=== PATIENT | female | born 1995 | race Caucasian/White ===

== ENCOUNTER → 2018-06-22 22:24 | Observation (INO) ==
[2018-06-22 21:41] LABS: Bilirubin,Urine Negative (Negative); Blood,Urine Negative (Negative); Clarity,Urine Cloudy (Clear); Color,Urine Yellow (Yellow); Glucose,Urine (UA) Normal (Normal); Ketones,Urine Negative (Negative); Leukocyte Esterase,Urine Small (Negative); Nitrite,Urine Negative (Negative); Protein,Urine Trace mg/dL (Neg-Trace); Specific Gravity,Urine 1.016 (1.010-1.025); Urobilinogen,Urine Normal (Normal)
[2018-06-22 21:43] LABS: Bacteria,Urine Moderate per hpf (None-Few); Hyaline Casts,Urine None Seen per lpf (None-Few); RBC,Urine 0-3 per hpf (0-3); Squamous Epithelial Cell,Urine Many per lpf (None-Few)
[2018-06-22 21:51] LABS: Amphetamine Screen,Urine Negative ng/mL (Cutoff=1000); Barbiturate Screen,Urine Negative ng/mL (Cutoff=200); Benzodiazepines Screen,Urine Negative ng/mL (Cutoff=200); Cannabinoid Screen,Urine Negative ng/mL (Cutoff = 50); Cocaine Screen,Urine Negative ng/mL (Cutoff= 300); Opiate Screen,Urine Negative ng/mL (Cutoff=300); Phencyclidine Screen,Urine Negative ng/mL (Cutoff=25)
--- NOTE | 2018-06-22 22:18 | Discharge Summary ---
Date of Encounter: 06/22/18 Time of Encounter: 22:16 - Discharge Diagnosis (1) 37 weeks gestation of Priority: Primary Status: Acute Comments: Admit observation for labor evaluation Regular Contractions noted but cervix without change in greater than an hour. SVE fingertip/thick/high (2) NST (non-stress test) reactive Priority: Secondary Status: Acute Comments: FHR 150 bpm, moderate variability, +15 x 15 accelerations, no decelerations. Contractions noted every 2-3 minutes. - Discharge Medications Prescriptions: No Action Ondansetron ODT [Zofran ODT] 4 mg SL Q6HR metroNIDAZOLE [Flagyl] 500 mg PO BID #14 tablet Home Medications: Ondansetron ODT [Zofran ODT] 4 mg SL Q6HR 04/04/18 [History] metroNIDAZOLE [Flagyl] 500 mg PO BID #14 tablet 04/04/18 [Rx] Allergies/Adverse Reactions: Allergy/AdvReac Type Severity Reaction Status Date / Time No Known Allergies Allergy Verified 12/11/17 21:45 Data Procedures and tests throughout hospitalization: Laboratory Tests 06/22/18 06/22/18 21:10 21:10 Urine Color Yellow Urine Clarity Cloudy A Urine pH 7.0 Ur Specific [place] 1.016 Urine Protein Trace Urine Glucose (UA) Normal Urine Ketones Negative Urine Blood Negative Urine Nitrite Negative Urine Bilirubin Negative Urine Urobilinogen Normal Ur Leukocyte Esterase Small H Urine Microscopic RBC 0-3 Urine Microscopic WBC 5-15 H Ur Squamous Epith Cells Many H Urine Bacteria Moderate H Hyaline Casts None Seen Ur Culture Indicated? NO. A Urine Opiates Screen Negative Ur Barbiturates Screen Negative Ur Phencyclidine Scrn Negative Ur Amphetamines Screen Negative U Benzodiazepines Scrn Negative Urine Cocaine Screen Negative U Marijuana (THC) Screen Negative Ur Drug Screen Interp See Below Labs on day of discharge: Labs from last 24 hours 06/22/18 06/22/18 21:10 21:10 Urine Color Yellow Urine Clarity Cloudy A Urine pH 7.0 Ur Specific [place] 1.016 Urine Protein Trace Urine Glucose (UA) Normal Urine Ketones Negative Urine Blood Negative Urine Nitrite Negative Urine Bilirubin Negative Urine Urobilinogen Normal Ur Leukocyte Esterase Small H Urine Microscopic RBC 0-3 Urine Microscopic WBC 5-15 H Ur Squamous Epith Cells Many H Urine Bacteria Moderate H Hyaline Casts None Seen Ur Culture Indicated? NO. A Urine Opiates Screen Negative Ur Barbiturates Screen Negative Ur Phencyclidine Scrn Negative Ur Amphetamines Screen Negative U Benzodiazepines Scrn Negative Urine Cocaine Screen Negative U Marijuana (THC) Screen Negative Ur Drug Screen Interp See Below Date of admission: 06/22/18 21:06 Discharging clinician: Funmilayo Gar Anticipated date of discharge: 06/22/18 - Patient Status Disposition: Home, Self-Care Condition: Good Functional capacity at discharge: independent ambulation Overall status at discharge: patient is progressing back to baseline - Discharge Instructions - Diet and Activity Activity: resume usual activities as tolerated Diet: regular diet Hospital Course [employer] Hospital course: Patient arrived to unit with complaints of contractions since 3:00 this afternoon. She appears visibly uncomfortable with contractions. Reports positive movement, denies vaginal bleeding and fluid leakage. Her cervix was fingertip/thick/high on admission and no change was noted in greater than one hour. Patient was offered Vistaril to help her rest through this early phase of labor and she declined. We discussed nonpharmacological methods of pain relief that she could try at home such as shower repositioning and she was encouraged to come back if pain gets worse. Patient was made aware that until she reaches 39 weeks gestation there are to be no form of augmentation or induction and she understands this. She has multiple family members at bedside for support. She is to follow-up with her OB provider as scheduled for routine care. Time Attestation: Total time spent providing and/or coordinating discharge services: Time Spent: Less than 30 minutes Exam - Constitutional General appearance IM: A&O X 3, pleasant, no acute distress, answers questions appropriately - Respiratory Respiratory exam: Present: CTAB - Cardiovascular Cardiovascular exam IM: Present: RRR, +S1, +S2 - GI/Abdominal GI/Abdominal exam IM: normal bowel sounds, soft - Rectal Rectal exam: deferred - External exam: normal external exam - Extremities Exam Extremities exam IM: Present: full ROM, normal capillary refill, normal inspection - Neurological Exam Neurological exam: alert, normal gait, oriented X3 - VTE Reasons for not Prescribing Prophylaxis: Treatment not Indicated - Low risk for VTE
== END | disposition home or self-care (01) ==
LOC: 1NENULAB
PROVIDERS: ADMIT Registered Nurse; ATTEND Registered Nurse

== ENCOUNTER 2018-06-23 14:38 | Observation (INO) ==
[2018-06-23 15:09] LABS: Amphetamine Screen,Urine Negative ng/mL (Cutoff=1000); Barbiturate Screen,Urine Negative ng/mL (Cutoff=200); Benzodiazepines Screen,Urine Negative ng/mL (Cutoff=200); Cannabinoid Screen,Urine Negative ng/mL (Cutoff = 50); Cocaine Screen,Urine Negative ng/mL (Cutoff= 300); Opiate Screen,Urine Negative ng/mL (Cutoff=300); Phencyclidine Screen,Urine Negative ng/mL (Cutoff=25)
--- NOTE | 2018-06-23 16:51 | OB/GYN Progress Note ---
Date of Encounter: 06/23/18 Time of Encounter: 16:49 - Assessment and Plan (1) Uterine contractions Current Visit: Yes Status: Acute No change on serial cervical exams. Discharged home with labor and when to return to triage precautions. Patient verbalizes understanding (2) 37 weeks gestation of Current Visit: No Status: Acute (3) NST (non-stress test) reactive Current Visit: No Status: Acute Subjective - Subjective Interval history: 37+4 weeks gestation presents to triage with complaints of contraction. Patient states she is been feeling increased contractions today since yesterday. Reports good movement, denies vaginal bleeding or leaking of fluid Antepartum ROS: movement normal, contractions, no loss of fluid, no vaginal bleeding Objective - Vital Signs Vital Signs: Intake and Output 06/23/18 06/23/18 06/23/18 07:59 15:59 23:59 Other: Weight 84.7 kg Patient Weight 06/23/18 23:59 Weight 84.7 kg - Exam FHR: auscultation normal FHR comments: Baseline 145 Abdomen: Present: soft, gravid Cervical dilation: Fingertip/thick/high
== END 2018-06-23 17:07 | disposition home or self-care (01) ==
LOC: 1NENULAB
PROVIDERS: ADMIT Advanced Practice Midwife; ATTEND Advanced Practice Midwife

== ENCOUNTER → 2021-01-31 21:16 | Observation (INO) ==
[~2021-01-31 21:16] MED LIST: *HR* Nalbuphine 10 MG/ML AMPUL IM PRN; *HR* Promethazine 25 MG/ML VIAL IM PRN
== END | disposition home or self-care (01) ==
LOC: 1NENULAB
PROVIDERS: ADMIT Advanced Practice Midwife; ATTEND Advanced Practice Midwife

== ENCOUNTER 2021-02-09 10:15 | Observation (INO) ==
[2021-02-09] MEDS ORDERED: Naloxone 0.4 MG/ML INJ IVP PRN (10:18)
[2021-02-09] MEDS ORDERED: Ondansetron 4 MG/2 ML VIAL IVP PRN (10:18)
[2021-02-09] MEDS ORDERED: Metoclopramide 10 MG/2 ML VIAL IVP PRN (10:18)
[2021-02-09] MEDS ORDERED: miSOPROStoL 25 MCG TABLET PO PRN (10:18)
[2021-02-09] MEDS ORDERED: *HR* Nalbuphine 10 MG/ML AMPUL IV PRN (10:18)
[2021-02-09] MEDS ORDERED: Famotidine 20 MG/2 ML VIAL IVP PRN (10:18)
[2021-02-09] MEDS ORDERED: Ringers Solution, Lactated 1,000 ML IVC SCH (10:30)
[2021-02-09 11:34] LABS: Basophils % 0.2 %; Eosinophils % 0.1 %; Hematocrit 33.3 % (35.3-44.9); Hemoglobin 10.6 g/dL (11.5-15.4); Immature Granulocytes % 0.9 % (0-4); Lymphocytes # 1.1 K/mcL (0.6-4.6); Lymphocytes % 11.5 %; Mean Corpuscular HGB Conc 31.8 g/dL (31.6-35.5); Mean Corpuscular Hemoglobin 31.6 pg (28.0-33.3); Mean Corpuscular Volume 99.4 fL (83.0-100.0); Mean Platelet Volume 9.5 fL (9.4-12.4); Monocytes # 0.4 K/mcL (0.0-1.3); Monocytes % 3.8 %; Neutrophils # 7.9 K/mcL (1.6-8.9); Platelet Count 192 K/mcL (140-400); Red Blood Count 3.35 M/mcL (3.82-4.97); Red Cell Distribution Width 15.8 % (11.5-14.5); Segmented Neutrophils % 83.5 %; White Blood Count 9.5 K/mcL (4.3-11.1)
[2021-02-09 11:40] LABS: Amphetamine Screen,Urine Negative ng/mL (Cutoff=1000); Barbiturate Screen,Urine Negative ng/mL (Cutoff=200); Benzodiazepines Screen,Urine Negative ng/mL (Cutoff=200); Cannabinoid Screen,Urine Negative ng/mL (Cutoff = 50); Cocaine Screen,Urine Negative ng/mL (Cutoff= 300); Opiate Screen,Urine Negative ng/mL (Cutoff=300); Phencyclidine Screen,Urine Negative ng/mL (Cutoff=25)
[2021-02-09 12:06] LABS: Influenza A PCR Negative (Negative); Influenza B PCR Negative (Negative); Resp. Syncytial Virus PCR Negative (Negative)
[2021-02-09 12:08] LABS: SARS-CoV-2 by PCR (In House) Positive (Negative)
== END 2021-02-09 16:38 | disposition home or self-care (01) ==
LOC: 1NENULAB 10:15 → INTOOBSV 10:15
PROVIDERS: ADMIT Registered Nurse; ATTEND Registered Nurse

== ENCOUNTER 2021-02-17 17:49 | Inpatient (IN) ==
[~2021-02-17 17:49] MED LIST changes: -*HR* Nalbuphine 10 MG/ML AMPUL IM PRN; +*HR* Oxytocin 10 UNIT/ML VIAL IM ONE; -*HR* Promethazine 25 MG/ML VIAL IM PRN
[2021-02-17] MEDS ORDERED: Lidocaine 1% 20 ML MDV ONE (18:00)
[2021-02-17] MEDS ORDERED: Famotidine 20 MG/2 ML VIAL IVP PRN (18:13)
[2021-02-17] MEDS ORDERED: Metoclopramide 10 MG/2 ML VIAL IVP PRN (18:13)
[2021-02-17] MEDS ORDERED: Lidocaine 1% 20 ML MDV INFILT PRN (18:13)
[2021-02-17] MEDS ORDERED: Naloxone 0.4 MG/ML INJ IVP PRN (18:13)
[2021-02-17] MEDS ORDERED: *HR* FentaNYL (PF) 100 MCG/2 ML VIAL ONE (18:19)
[2021-02-17 18:39] LABS: Basophils % 0.2 %; Eosinophils % 0.1 %; Hematocrit 36.2 % (35.3-44.9); Hemoglobin 11.7 g/dL (11.5-15.4); Immature Granulocytes % 0.6 % (0-4); Lymphocytes # 1.3 K/mcL (0.6-4.6); Lymphocytes % 7.3 %; Mean Corpuscular HGB Conc 32.3 g/dL (31.6-35.5); Mean Corpuscular Hemoglobin 31.4 pg (28.0-33.3); Mean Corpuscular Volume 97.1 fL (83.0-100.0); Mean Platelet Volume 9.5 fL (9.4-12.4); Monocytes # 0.4 K/mcL (0.0-1.3); Monocytes % 2.4 %; Neutrophils # 15.6 K/mcL (1.6-8.9); Platelet Count 245 K/mcL (140-400); Red Blood Count 3.73 M/mcL (3.82-4.97); Red Cell Distribution Width 15.9 % (11.5-14.5); Segmented Neutrophils % 89.4 %; White Blood Count 17.4 K/mcL (4.3-11.1)
[2021-02-17] MEDS ORDERED: *HR* FentaNYL (PF) 100 MCG/2 ML VIAL IVP ONE (19:02)
[2021-02-17] MEDS ORDERED: Oxytocin 20 units/ LR 1000 mL 20 UNIT/1,000 ML BAG IVC SCH (20:30)
[2021-02-17] MEDS ORDERED: Ondansetron ODT 4 MG TAB.RAPDIS SL PRN (20:30)
[2021-02-17] MEDS ORDERED: Benzocaine/Menthol 56 GM AEROSOL SPRAY TP PRN (20:30)
[2021-02-17] MEDS ORDERED: Lanolin 7 G OINT...G. TP PRN (20:30)
[2021-02-17] MEDS: Ibuprofen 600 MG TABLET PO SCH (20:56)
[2021-02-17] MEDS: Acetaminophen 325 MG TABLET PO SCH (20:56)
[2021-02-17 23:53] VITALS: BP 121/76; PULSE 78; TEMP 98.6; O2SAT 99
[2021-02-18] MEDS: Acetaminophen 325 MG TABLET PO SCH (03:41)
[2021-02-18] MEDS: Ibuprofen 600 MG TABLET PO SCH (03:41)
[2021-02-18] MEDS ORDERED: Prenatal Vit/FA 1 EACH TABLET PO SCH (09:00)
== END 2021-02-18 19:25 | disposition home or self-care (01) | DRG 560 ==
LOC: 1NENULAB 17:49 → 1NENUOBS 20:30
PROVIDERS: ADMIT Advanced Practice Midwife; ATTEND Advanced Practice Midwife